=== PATIENT | female | born 1995 | race Native Hawaiian/Other Pacific Islander ===

== ENCOUNTER 2017-09-13 13:31 | Emergency (ER) | payer MEDICAID ==
[~2017-09-13] VITALS: Ht 157.5 cm; Wt 98.1 kg
[2017-09-13 15:22] LABS: PREOP URINE HCG NEGATIVE (NEGATIVE)
[2017-09-13 15:30] LABS: CLARITY,URINE CLOUDY (Clear); COLOR,URINE YELLOW (Yellow); GLUCOSE, URINE NEGATIVE (Neg); KETONES,URINE NEGATIVE (Neg); LEUKOCYTE ESTERASE ,URINE MODERATE (Neg); NITRITES, URINE NEGATIVE (Neg); OCCULT BLOOD,URINE NEGATIVE (Neg); PROTEIN,URINE NEGATIVE (Neg); UROBILINOGEN,URINE 0.2 E.U/dL (0.2-1.0)
[2017-09-13 15:31] LABS: UA COLLECTION TYPE CLN CATCH MIDSTREAM
[2017-09-13 15:36] LABS: SQUAMOUS EPITHELIAL CELL,UR MANY /LPF (FEW)
[2017-09-13 15:40] LABS: BACTERIA,URINE 2+ /HPF (Neg); RBC,URINE 0-2 /HPF (0-2); WBC,URINE 0-4 /HPF (0-4)
[2017-09-13] MEDS ORDERED: dexamethasone sod phosphate 10mg/ml inj PO STA (15:51)
[2017-09-13] MEDS ORDERED: ketorolac trometh inj. 60 MG/2 ML VIAL IM ONE (15:55)
[2017-09-13] MEDS ORDERED: IBUP-1985 PO (16:02)
[2017-09-13 16:22] VITALS: BP 107/62
== END 2017-09-13 16:23 | disposition home or self-care (01) ==
LOC: ER 13:31
DX: G89.29 Other chronic pain (principal); M54.5 Low back pain; Z79.899 Other long term (current) drug therapy
CPT/HCPCS: 81001; 81025; 96372; 99284; J1100; J1885

== ENCOUNTER 2017-10-05 13:36 | Emergency (ER) | payer MEDICAID ==
[~2017-10-05] VITALS: Ht 157.5 cm; Wt 89.0 kg
[~2017-10-05 13:36] MED LIST: IBUP-1985 PO
[2017-10-05 13:43] VITALS: BP 119/72
[2017-10-05] MEDS ORDERED: penicillin G benzathine 1.2 million unit/2ml syringe IM ONE (14:15)
[2017-10-05] MEDS ORDERED: ketorolac trometh inj. 60 MG/2 ML VIAL IM ONE (14:15)
[2017-10-05] MEDS ORDERED: acetaminophen 325mg tablet PO ONE (14:15)
== END 2017-10-05 14:48 | disposition home or self-care (01) ==
LOC: ER 13:37
DX: J02.0 Streptococcal pharyngitis (principal); G89.29 Other chronic pain
CPT/HCPCS: 96372; 99284; J0561; J1885

== ENCOUNTER 2019-06-26 21:52 | Emergency (ER) | payer BC ==
[~2019-06-26] VITALS: Ht 157.5 cm; Wt 85.0 kg
[2019-06-26] MEDS ORDERED: ketorolac tromethamine 15mg/ml inj. IM ONE (22:35)
[2019-06-26 23:04] VITALS: BP 100/45
== END 2019-06-26 23:06 | disposition home or self-care (01) ==
LOC: ER 21:52
DX: R07.89 Other chest pain (principal); G89.29 Other chronic pain
CPT/HCPCS: 71046; 93005; 96372; 99283; J1885

== ENCOUNTER 2019-08-30 09:19 | Emergency (ER) | payer BC ==
[~2019-08-30] VITALS: Ht 160 cm; Wt 108.0 kg
[2019-08-30 09:22] VITALS: BP 137/94
[2019-08-30] MEDS ORDERED: ketorolac trometh inj. 60 MG/2 ML VIAL IM ONE (10:40)
== END 2019-08-30 11:12 | disposition home or self-care (01) ==
LOC: ER 09:19
DX: M25.561 Pain in right knee (principal); M25.562 Pain in left knee; G89.29 Other chronic pain; Z72.89 Other problems related to lifestyle; Z79.899 Other long term (current) drug therapy
CPT/HCPCS: 96372; 99283; J1885

== ENCOUNTER 2020-10-08 19:58 | Emergency (ER) | payer BC, MEDICAID ==
[~2020-10-08] VITALS: Ht 160 cm; Wt 122.0 kg
[2020-10-08 20:19] VITALS: BP 135/84
[2020-10-08 22:36] LABS: BASOPHILS # (AUTO) 0.1 X10'3 (0-0.2); BASOPHILS % (AUTO) 0.7 % (0-1); EOSINOPHILS # (AUTO) 0.5 X10'3 (0-0.9); EOSINOPHILS % (AUTO) 3.5 % (0-6); HEMATOCRIT 43.5 % (35.0-45.0); HEMOGLOBIN 14.1 g/dl (12.0-16.0); LYMPHOCYTES % (AUTO) 19.8 % (21-51); MEAN CORPUSCULAR HEMOGLOBIN 25.7 PG (27.0-31.0); MEAN CORPUSCULAR HGB CONC 32.5 g/dL (33.0-36.5); MEAN CORPUSCULAR VOLUME 78.9 FL (78-98); MEAN PLATELET VOLUME 8.3 FL (7.4-10.4); MONOCYTES # (AUTO) 0.7 X10'3 (0-0.9); MONOCYTES % (AUTO) 4.4 % (2-12); NEUTROPHILS # (AUTO) 10.8 X10'3 (1.8-7.7); NEUTROPHILS % (AUTO) 71.6 % (42-75); PLATELET COUNT 315 X10'3 (140-440); RED BLOOD COUNT 5.51 X10'6 (4.20-5.60); RED CELL DISTRIBUTION WIDTH 16.8 % (11.5-14.5); WHITE BLOOD COUNT 15.1 X10'3 (4.5-11.0)
[2020-10-08 22:41] LABS: HCG SERUM QL POSITIVE
== END 2020-10-09 01:10 | disposition home or self-care (01) ==
LOC: ER 19:59
DX: O46.91 Antepartum hemorrhage, unspecified, first trimester (principal); G89.29 Other chronic pain; Z3A.01 Less than 8 weeks gestation of pregnancy; Z72.89 Other problems related to lifestyle; Z79.899 Other long term (current) drug therapy
CPT/HCPCS: 36415; 76801; 76815; 84702; 84703; 85025; 86900; 86901; 93976; 99284; 99285

== ENCOUNTER 2020-12-18 10:23 | Emergency (ER) | payer MEDICAID ==
[~2020-12-18] VITALS: Ht 160 cm; Wt 122.3 kg
[2020-12-18 11:09] LABS: BASOPHILS # (AUTO) 0.1 X10'3 (0-0.2); BASOPHILS % (AUTO) 0.5 % (0-1); EOSINOPHILS # (AUTO) 0.1 X10'3 (0-0.9); EOSINOPHILS % (AUTO) 1.3 % (0-6); HEMATOCRIT 39.7 % (35.0-45.0); HEMOGLOBIN 13.6 g/dl (12.0-16.0); LYMPHOCYTES # (AUTO) 2.2 X10'3 (1.1-4.8); LYMPHOCYTES % (AUTO) 20.3 % (21-51); MEAN CORPUSCULAR HEMOGLOBIN 26.9 PG (27.0-31.0); MEAN CORPUSCULAR HGB CONC 34.3 g/dL (33.0-36.5); MEAN CORPUSCULAR VOLUME 78.2 FL (78-98); MEAN PLATELET VOLUME 8.9 FL (7.4-10.4); MONOCYTES # (AUTO) 0.4 X10'3 (0-0.9); MONOCYTES % (AUTO) 4.1 % (2-12); NEUTROPHILS # (AUTO) 7.9 X10'3 (1.8-7.7); NEUTROPHILS % (AUTO) 73.8 % (42-75); PLATELET COUNT 252 X10'3 (140-440); RED BLOOD COUNT 5.07 X10'6 (4.20-5.60); WHITE BLOOD COUNT 10.8 X10'3 (4.5-11.0)
[2020-12-18 11:18] LABS: URINE HCG POSITIVE (NEG)
[2020-12-18 11:23] LABS: CLARITY,URINE CLEAR (Clear); COLOR,URINE YELLOW (Yellow); GLUCOSE, URINE NEGATIVE (Neg); KETONES,URINE NEGATIVE (Neg); LEUKOCYTE ESTERASE ,URINE NEGATIVE (Neg); NITRITES, URINE NEGATIVE (Neg); OCCULT BLOOD,URINE NEGATIVE (Neg); PROTEIN,URINE NEGATIVE (Neg); UA COLLECTION TYPE CLN CATCH MIDSTREAM; UROBILINOGEN,URINE 0.2 E.U/dL (0.2-1.0)
[2020-12-18 11:25] LABS: ALANINE AMINOTRANSFERASE 40 U/L (12-78); ALBUMIN/GLOBULIN RATIO 0.7 (1.1-1.5); ALKALINE PHOSPHATASE 53 IU/L (46-116); ANION GAP 14 (8-16); ASPARTATE AMINO TRANSFERASE 30 U/L (10-37); BILIRUBIN,TOTAL 0.2 MG/DL (0.1-1.0); BLOOD UREA NITROGEN 7 MG/DL (7-18); BUN/CREATININE RATIO 10.1 (6.6-38.0); CALCIUM 8.8 MG/DL (8.5-10.1); CHLORIDE 103 MMOL/L (99-107); CREATININE 0.69 MG/DL (0.40-0.90); GLUCOSE 104 MG/DL (70-104); LIPASE 93 U/L (73-393); POTASSIUM 3.4 MMOL/L (3.5-5.1); SODIUM 137 MMOL/L (135-145); TOTAL CARBON DIOXIDE 20.2 MMOL/L (24-32); TOTAL PROTEIN 7.6 G/DL (6.4-8.2); eGFR > 90 ML/MIN
[2020-12-18 12:10] VITALS: BP 136/85
== END 2020-12-18 12:11 | disposition home or self-care (01) ==
LOC: ER 10:24
DX: O26.892 Other specified pregnancy related conditions, second trimester (principal); E87.8 Other disorders of electrolyte and fluid balance, not elsewhere classified; Z3A.17 17 weeks gestation of pregnancy; G89.29 Other chronic pain; Z72.89 Other problems related to lifestyle; Z79.899 Other long term (current) drug therapy
CPT/HCPCS: 36415; 80053; 81003; 81025; 83690; 85025; 99283